=== PATIENT | female | born 1940 | race Caucasian/White ===

== ENCOUNTER 2022-10-31 11:49 | Emergency (ER) | payer MEDICARE, MEDICAID ==
[~2022-10-31] VITALS: Ht 165.1 cm; Wt 81.8 kg
[2022-10-31 12:18] VITALS: BP 164/70
[2022-10-31] MEDS ORDERED: OMEP20TA43 PO ×2 (13:24)
[2022-10-31] MEDS ORDERED: SIME80TA16 PO ×2 (13:24)
[2022-10-31] MEDS ORDERED: LOPE1TAB46 PO ×2 (13:24)
[2022-10-31] MEDS ORDERED: simethicone 125mg capsule PO STA (13:25)
[2022-10-31] MEDS ORDERED: loperamide 2mg capsule PO ONE (13:25)
--- NOTE | 2022-11-01 14:27 | NUR ---
PT'S DAUGHTER CALLED, REGARDING PT'S VISIT AND MEDICATIONS CALLED TO [facility] YESTERDAY; 10/31/22. DAUGHTER STATES THAT [facility] DOES NOT HAVE ONE OF THE 3 MEDICATIONS PERSCRIBED AND THAT THE OTHER 2 ARE NOT SHOWING IN THEIR SYSTEM. DAUGHTER REQUESTED THAT RX x3 BE SENT TO [facility] ON [address]. JAXON ALLEN NP WAS NOTIFIED.
[2022-11-01] MEDS ORDERED: SIME80TA16 PO (15:37)
[2022-11-01] MEDS ORDERED: LOPE1TAB46 PO (15:37)
[2022-11-01] MEDS ORDERED: OMEP20TA43 PO (15:37)
== END 2022-10-31 14:04 | disposition home or self-care (01) ==
LOC: ER 11:50
DX: A08.4 Viral intestinal infection, unspecified (principal); Z79.899 Other long term (current) drug therapy; Z79.1 Long term (current) use of non-steroidal anti-inflammatories (NSAID)
CPT/HCPCS: 99283